=== PATIENT | female | born 1975 | race Caucasian/White ===

== ENCOUNTER → 2017-02-19 | Outpatient (CLI) | payer BC, OTHER ==
[~2017-02-19] MED LIST: MEDLIST
[2017-02-19 13:17] LABS: BASO % 0.5 %; BASO ABS # 0.03 K/uL (0-0.2); COMPLETE YES; EOS % 3.5 %; HEMATOCRIT 39.2 % (37-47); IG% 0.3 %; LYMPH % 32.5 %; LYMPH ABS # 2.07 K/uL (1.2-3.4); MEAN CELL VOLUME 95.1 fL (80-100); MEAN CORPUSCULAR HEMOGLOBIN 32.8 pg (25-34); MEAN CORPUSCULAR HGB CONC 34.4 g/dl (32-36); MEAN PLATELET VOLUME 9.9 fL (7.4-10.4); MONO % 6.1 %; NEUT % 57.1 %; PLATELET COUNT 299 K/uL (130-400); RED BLOOD COUNT 4.12 M/uL (4.2-5.4); WHITE BLOOD COUNT 6.37 K/uL (4.8-10.8)
[2017-02-19 13:40] LABS: ALT/SGPT 16 U/L (12-78); BLOOD UREA NITROGEN 14 mg/dl (7-18); BUN/CREATININE RATIO 16.5 (10-20); CALCIUM 8.7 mg/dl (8.5-10.1); CARBON DIOXIDE 26 mmol/L (21-32); CHLORIDE 107 mmol/L (98-107); CREATININE 0.84 mg/dl (0.60-1.20); GLUCOSE 91 mg/dl (70-99); SODIUM 139 mmol/L (136-145)
[2017-02-19 13:51] LABS: ALB/GLOB RATIO 1.2 (0.9-2); ALKALINE PHOSPHATASE 43 U/L (45-117); AST/SGOT 15 U/L (15-37)
[2017-02-19 14:14] LABS: LYME DISEASE AB IGG NEG (NEG); LYME DISEASE AB IGM NEG (NEG)
== END | disposition home or self-care (01) ==
LOC: C.LABPVFM 08:27
PROVIDERS: ATTEND Family Medicine
DX: R53.83 Other fatigue (principal); M79.1 Myalgia; M25.50 Pain in unspecified joint